=== PATIENT | male | born 2000 | race Caucasian/White ===

== ENCOUNTER 2018-10-26 15:40 | Emergency (ER) | payer OTHER ==
[2018-10-26] MEDS ORDERED: AMOXICILLIN/CLAVULANATE POT 875/125 MG TAB PO ONE (16:37)
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
[2018-10-26 18:08] VITALS: BP 123/69
== END 2018-10-26 18:06 | disposition home or self-care (01) ==
PROC: 0CQ0XZZ Repair Upper Lip, External Approach (ICD-10-PCS; principal; 2018-10-26)
PROC: 0CQ4XZZ Repair Buccal Mucosa, External Approach (ICD-10-PCS; principal; 2018-10-26)
DX: S01.81XA Laceration without foreign body of other part of head, initial encounter (principal); V18.0XXA Pedal cycle driver injured in noncollision transport accident in nontraffic accident, initial encounter; Y93.55 Activity, bike riding; Y92.480 Sidewalk as the place of occurrence of the external cause